=== PATIENT | female | born 1980 | race Two or more races ===

== ENCOUNTER 2017-12-26 10:19 | Inpatient (IN) | payer SELFPAY ==
[~2017-12-26] VITALS: Ht 162.6 cm; Wt 68.0 kg
[2017-12-26 11:11] LABS: Basophils # (auto) 0.1 uL; Basophils % (auto) 0.7 % (0.0-2.0); Eosinophils % (auto) 1.7 % (0.0-7.0); Lymphocytes # (auto) 1.7 uL
[2017-12-26 11:13] LABS: Eosinophils # (auto) 0.2 uL; Hematocrit 36.6 % (36.0-46.0); Hemoglobin 12.1 g/dL (12.2-16.2); Lymphocytes % (auto) 18.9 % (10.0-50.0); Mean Corpuscular Hemoglobin 25.7 pg (28.0-32.0); Mean Corpuscular Hgb Conc. 33.1 g/dL (32.0-36.0); Mean Corpuscular Volume 77.5 fL (80.0-100.0); Monocytes % (auto) 11.1 % (0.0-12.0); Neutrophils % (auto) 67.6 % (37.0-80.0); Nucleated Red Blood Cells % 0.1 %; Platelet Count (auto) 320 10^3/uL (140-450); Red Blood Cells 4.73 10^6/uL (4.0-5.20); Red Cell Distribution Width 16.1 % (11.8-14.3); White Blood Cell 8.9 10^3/uL (4.4-10.8)
[2017-12-26 11:23] LABS: INR 0.91 (0.9-1.15); Partial Thromboplastin Time 25.9 sec (23.78-33.04); Prothrombin Time 9.8 sec (9.27-12.13)
[2017-12-26 11:32] LABS: Albumin 3.7 g/dL (3.4-5.0); BUN/Creatinine Ratio 23.4; Bilirubin, Total 0.2 mg/dL (0.2-1.0); Calcium 8.6 mg/dL (8.5-10.1); Potassium 4.1 mmol/L (3.5-5.1)
[2017-12-26] MEDS ORDERED: CARV25TA55 PO (17:23)
[2017-12-26] MEDS ORDERED: POTA20TA53 PO (17:23)
[2017-12-26] MEDS ORDERED: LISI-646 PO (17:23)
[2017-12-26] MEDS ORDERED: FURO40TA4 PO (17:23)
[2017-12-26 17:27] LABS: Urine Bacteria NONE SEEN /hpf (None Seen); Urine Blood Negative /uL (Negative); Urine WBC 4 /hpf (0 - 5)
[2017-12-26 17:28] LABS: Urine Pregnacy Test Negative (Negative)
[2017-12-26] MEDS ORDERED: ONDANSETRON HCL 4 MG/2 ML VIAL IV ONE (17:30)
[2017-12-26] MEDS ORDERED: ASPirin 81 mg TAB PO ONE (17:30)
[2017-12-26] MEDS ORDERED: MORPHINE SULF INJ 2 MG/ML SYRINGE 1ML IV ONE (17:30)
[2017-12-26 17:31] LABS: Alcohol, Urine < 3.0 mg/dL (0-5); Amphetamine Screen, Urine NEGATIVE (NEGATIVE); Barbiturate Scree,Urine NEGATIVE (NEGATIVE); Benzodiazephine Screen, Urine NEGATIVE (NEGATIVE); Cannabinoid Screen, Urine NEGATIVE (NEGATIVE); Cocaine Screen, Urine NEGATIVE (NEGATIVE); Opiate Scree,Urine NEGATIVE (NEGATIVE); Phencyclidine Screen, Urine NEGATIVE (NEGATIVE)
[2017-12-26] MEDS ORDERED: cefTRIAXone 1GM/10ml IVPUSH 10 ML IV ONE (19:45)
[2017-12-26] MEDS ORDERED: MORPHINE SULF INJ 2 MG/ML SYRINGE 1ML IV PRN (20:30)
[2017-12-26] MEDS ORDERED: NITROGLYCERIN 0.4 MG SL TAB SL PRN (20:30)
[2017-12-26] MEDS ORDERED: ONDANSETRON HCL 4 MG/2 ML VIAL IV PRN (20:30)
[2017-12-26] MEDS ORDERED: TEMAZEPAM 15 MG CAP PO PRN (20:30)
[2017-12-26] MEDS ORDERED: ACETAMINOPHEN 325 MG TAB PO PRN (20:30)
[2017-12-26] MEDS: CARVEDILOL 12.5 MG TAB PO SCH ×2 (21:37→23:56)
[2017-12-26] MEDS: FAMOTIDINE 20 MG TAB PO SCH (21:37)
[2017-12-26 22:30] VITALS: BP 135/74
[2017-12-27 05:00] VITALS: BP 123/73
[2017-12-27] MEDS ORDERED: FUROSEMIDE 40 MG TAB PO SCH (06:00)
[2017-12-27 06:04] LABS: Basophils # (auto) 0 uL; Hemoglobin 10.9 g/dL (12.2-16.2); Lymphocytes # (auto) 1.7 uL; Monocytes # (auto) 0.8 uL; Monocytes % (auto) 10.4 % (0.0-12.0)
[2017-12-27 06:07] LABS: Basophils % (auto) 0.2 % (0.0-2.0); Eosinophils # (auto) 0.2 uL; Hematocrit 33.9 % (36.0-46.0); Lymphocytes % (auto) 23.2 % (10.0-50.0); Mean Corpuscular Hemoglobin 25.1 pg (28.0-32.0); Mean Corpuscular Hgb Conc. 32.3 g/dL (32.0-36.0); Mean Corpuscular Volume 77.7 fL (80.0-100.0); Neutrophils # (auto) 4.8 uL; Neutrophils % (auto) 64.2 % (37.0-80.0); Platelet Count (auto) 271 10^3/uL (140-450); Red Blood Cells 4.36 10^6/uL (4.0-5.20); Red Cell Distribution Width 16.1 % (11.8-14.3); White Blood Cell 7.5 10^3/uL (4.4-10.8)
[2017-12-27 06:24] LABS: BUN/Creatinine Ratio 26.4; Bilirubin, Total 0.3 mg/dL (0.2-1.0); Calcium 8.1 mg/dL (8.5-10.1); Total Protein 6.7 g/dL (6.4-8.2)
[2017-12-27] MEDS ORDERED: BUTAPT GT (06:30)
[2017-12-27] MEDS: FAMOTIDINE 20 MG TAB PO SCH (08:44)
[2017-12-27] MEDS: CARVEDILOL 12.5 MG TAB PO SCH (08:45)
[2017-12-27 09:21] VITALS: BP 107/51
[2017-12-27] MEDS ORDERED: ASPirin 81 mg TAB PO SCH (10:00)
[2017-12-27] MEDS ORDERED: ENOXAPARIN SOD 40 MG/0.4 ML SYRINGE SC SCH (10:00)
[2017-12-27] MEDS ORDERED: LISINOPRIL 20 MG TAB PO SCH (10:00)
[2017-12-27] MEDS ORDERED: POTASSIUM CHL 20 Meq TABLET PO SCH (10:00)
[2017-12-27 14:32] VITALS: BP 124/69
[2017-12-27] MEDS ORDERED: InsuLIN REG 1unit/0.01ml Soln (100units/ml) ONE (14:48)
== END 2017-12-27 16:36 | disposition home or self-care (01) | DRG 303 ==
LOC: EDBD 10:19 → ER 10:19 → TELE 10:20 → TELE-WESTW 22:20
PROVIDERS: ADMIT Nurse Practitioner; ATTEND Internal Medicine
DX: I25.10 Atherosclerotic heart disease of native coronary artery without angina pectoris (principal); N39.0 Urinary tract infection, site not specified; D64.9 Anemia, unspecified; E66.01 Morbid (severe) obesity due to excess calories; E78.5 Hyperlipidemia, unspecified; I11.0 Hypertensive heart disease with heart failure; I50.9 Heart failure, unspecified; K76.0 Fatty (change of) liver, not elsewhere classified; R73.9 Hyperglycemia, unspecified; Z82.49 Family history of ischemic heart disease and other diseases of the circulatory system; Z79.899 Other long term (current) drug therapy; Z68.25 Body mass index [BMI] 25.0-25.9, adult
CPT/HCPCS: 36415; 71046; 80053; 80307; 81001; 81025; 83880; 84484; 85025; 85610; 85730; 93005; 96374; 96375; J0696; J1815; J2405

== ENCOUNTER 2018-02-12 01:45 | Emergency (ER) | payer SELFPAY ==
[~2018-02-12] VITALS: Ht 162.6 cm; Wt 99.8 kg
[~2018-02-12 01:45] MED LIST: BUTAPT GT; CARV25TA55 PO; FURO40TA4 PO; LISI-646 PO; POTA20TA53 PO
[2018-02-12 02:22] VITALS: BP 146/86
[2018-02-12 02:39] LABS: Eosinophils # (auto) 0.2 uL; Eosinophils % (auto) 2.1 % (0.0-7.0); Hematocrit 35.8 % (36.0-46.0); Neutrophils # (auto) 5.6 uL
[2018-02-12 02:40] LABS: Basophils # (auto) 0 uL; Basophils % (auto) 0.3 % (0.0-2.0); Hemoglobin 11.5 g/dL (12.2-16.2); Lymphocytes # (auto) 2.8 uL; Lymphocytes % (auto) 29.1 % (10.0-50.0); Mean Corpuscular Hemoglobin 24.6 pg (28.0-32.0); Mean Corpuscular Volume 76.9 fL (80.0-100.0); Monocytes % (auto) 10.5 % (0.0-12.0); Platelet Count (auto) 313 10^3/uL (140-450); Red Blood Cells 4.66 10^6/uL (4.0-5.20); Red Cell Distribution Width 15.6 % (11.8-14.3); White Blood Cell 9.6 10^3/uL (4.4-10.8)
[2018-02-12 02:53] LABS: INR 0.93 (0.9-1.15); Partial Thromboplastin Time 26.6 sec (23.78-33.04)
[2018-02-12 02:56] LABS: Albumin 3.1 g/dL (3.4-5.0); BUN/Creatinine Ratio 23.3; Calcium 8.2 mg/dL (8.5-10.1); Magnesium 2.1 mg/dL (1.6-2.6); Potassium 3.9 mmol/L (3.5-5.1)
[2018-02-12 03:01] LABS: Bilirubin, Total 0.3 mg/dL (0.2-1.0); Total Protein 7.4 g/dL (6.4-8.2)
== END 2018-02-12 02:24 | disposition left against medical advice (07) ==
LOC: ER 01:56
DX: F41.9 Anxiety disorder, unspecified (principal); R42 Dizziness and giddiness; R11.0 Nausea; Z53.21 Procedure and treatment not carried out due to patient leaving prior to being seen by health care provider
CPT/HCPCS: 36415; 80053; 83735; 83880; 84443; 84484; 85025; 85610; 85730; 93005

== ENCOUNTER 2020-11-12 11:26 | Emergency (ER) | payer BC, OTHER ==
[~2020-11-12] VITALS: Ht 162.6 cm; Wt 113.4 kg
[~2020-11-12 11:26] MED LIST changes: -LISI-646 PO; +LISI20TA28 PO; +POTA-220 PO; -POTA20TA53 PO
[2020-11-12] MEDS ORDERED: ASPirin 81 mg TAB PO ONE (11:45)
[2020-11-12 12:19] LABS: Eosinophils # (auto) 0.2 10 ^3/uL (0-0.8); Monocytes # (auto) 0.8 10 ^3/uL (0-1.3)
[2020-11-12 12:21] LABS: Basophils # (auto) 0 10 ^3/uL (0-0.2); Basophils % (auto) 0.3 % (0.0-2.0); Eosinophils % (auto) 1.5 % (0.0-7.0); Hemoglobin 12.5 g/dL (12.2-16.2); Lymphocytes # (auto) 2.5 10 ^3/uL (0.4-5.4); Lymphocytes % (auto) 22.8 % (10.0-50.0); Mean Corpuscular Hemoglobin 25.9 pg (28.0-32.0); Mean Corpuscular Volume 78.3 fL (80.0-100.0); Monocytes % (auto) 7.5 % (0.0-12.0); Neutrophils # (auto) 7.4 10 ^3/uL (1.6-8.6); Neutrophils % (auto) 67.9 % (37.0-80.0); Nucleated Red Blood Cells % 0.1 %; Platelet Count (auto) 346 10^3/uL (140-450); Red Blood Cells 4.85 10^6/uL (4.0-5.20); Red Cell Distribution Width 15.7 % (11.8-14.3); White Blood Cell 10.9 10^3/uL (4.4-10.8)
[2020-11-12 12:36] LABS: Potassium 4.1 mmol/L (3.5-5.1)
[2020-11-12 12:55] LABS: Albumin 3.6 g/dL (3.4-5.0); Bilirubin, Total 0.4 mg/dL (0.2-1.0); Calcium 8.8 mg/dL (8.5-10.1); Total Protein 7.8 g/dL (6.4-8.2)
[2020-11-12 14:08] VITALS: BP 142/90
== END 2020-11-12 14:11 | disposition home or self-care (01) ==
LOC: ER 11:26
DX: R07.89 Other chest pain (principal); F41.9 Anxiety disorder, unspecified; I11.0 Hypertensive heart disease with heart failure; I50.9 Heart failure, unspecified; E78.00 Pure hypercholesterolemia, unspecified
CPT/HCPCS: 36415; 71046; 80053; 83880; 84484; 85025; 85049; 93005